=== PATIENT | male | born 1960 | race Caucasian/White ===

== ENCOUNTER 2016-04-19 11:10 | Inpatient (IN) | payer MEDICARE ==
[2016-04-19] MEDS ORDERED: SODIUM CHLORIDE 0.9% 10 ML FLUSH FLUSH PRN (11:33)
[2016-04-19] MEDS ORDERED: ALBUTEROL 0.083% 3 ML NEB NEB ONE (11:33)
[2016-04-19] MEDS ORDERED: Albuterol/Ipratropium Neb 3 ML NEB NEB ONE ×2 (11:33→13:35)
[2016-04-19] MEDS ORDERED: ASPIRIN (CHEWABLE) 81 MG TAB PO ONE (11:33)
[2016-04-19] MEDS ORDERED: METHYLPREDNISOLONE 125 MG/2 ML VIAL IV ONE (11:33)
--- NOTE | 2016-04-19 11:36 | EDPRACDOC ---
- General Information Information Source: Patient Mode Of Arrival: Car - History of Present Illness Onset: 1 week HPI: Pt c/o R chest pain with SOB, wheezing, productive cough, congestion, fever 101 , nausea x 1 week. Denies earache, sore throat, abd pain, changes in bowel or bladder, rash. Hx COPD. Denies recent antibiotics or steroids. Shortness of Breath: Moderate Relevant History: Reports: COPD Cough: Reports: Productive Rhinorrhea: Reports: Clear Ear Symptoms: Reports: None SOB Worsens with: Reports: Exertion, Coughing, Lying Flat SOB Improves with: Reports: Nothing Associated Signs and symptoms: Reports: Cough, Fever, Nasal Symptoms, Nausea <Nasrin Kaur - Last Filed: 04/19/16 12:48> <Nitesh Brewster - Last Filed: 04/19/16 12:54> - General Information Chief Complaint: Chest Pain Stated Complaint: CHEST PAIN/SHOB Time Seen by Provider: 04/19/16 11:28 Home Medications: Home Medications No Home Medications 04/19/16 Allergies/Adverse Reactions: Allergies Allergy/AdvReac Type Severity Reaction Status Date / Time methocarbamol [From Robaxin] Allergy Hives* Verified 04/19/16 11:21 ED Past Medical History - History Reviewed Yes Nurses notes reviewed and agree except as marked - Patient Medical History Cardiac History: Reports: Hypertension, Cardiac Catheterization (NEGATIVE-5 OR MORE YEARS) Respiratory History: Reports: COPD, Pneumonia, Emphysema. Denies: Asthma GI/ History: Reports: Gastroesophageal Reflux, Diverticulosis (episode of diverticulitis 2 weeks ago resolved) Musculoskeletal History: Reports: Osteoarthritis Psychological History: Reports: Anxiety. Denies: Depression, Substance Use Disorder Systemic History: Denies: Cancer Surgical History: Reports: Cholecystectomy, Cardiac Catheterization (NEGATIVE-5 OR MORE YEARS), Hernia Surgery - Family Medical History Reports: Diabetes, Cardiac Disorders (MOTHER). Denies: Hypertension, Cancer, Stroke - Social Medical History Smoking Status: Former smoker (quit 1 yr ago) Social History: Denies: Substance Use Disorder ETOH: None Substance Abuse: None <Nasrin Kaur - Last Filed: 04/19/16 12:48> EDM Review of Systems - Review of Systems Constitutional: Fever Ears: No Symptoms Reported. negative: Pain, Hearing Loss, Drainage, Ear Pulling Throat: No Symptoms Reported. negative: Pain, Swelling Nose: Congestion Mouth: No Symptoms Reported. negative: Pain, Drooling Respiratory: Cough, Shortness of Breath Cardiovascular: Chest Pain Gastrointestinal: Nausea Genitourinary: No Symptoms Reported. negative: Dysuria, Hematuria, Frequency, Discharge, Bleeding, Testicular Pain, Neurological: No Symptoms Reported. negative: Headache, Dizziness, Seizure, Numbness, Weakness, Speech Difficulty, Gait Difficulty Musculoskeletal: No Symptoms Reported. negative: Neck, Chestwall, Ribs, Back, Shoulder, Arm, Elbow, Forearm, Wrist, Hand, Pelvis, Hip, Femur, Knee, Leg, Ankle , Foot Integumentary: No Symptoms Reported. negative: Itching, Rash, Bruising, Wound Allergic/Immunologic: No Symptoms Reported. negative: Hives, Itching Hematologic: No Symptoms Reported. negative: Lymphadenopathy, Easy Bruising, Easy Bleeding Psychiatric: No Symptoms Reported. negative: Anxiety, Depression, Hallucinations, Insomnia, Suicidal <Nasrin Kaur - Last Filed: 04/19/16 12:48> - Physical Exam Constitutional: Alert, Distress (mild) Oriented to: Time, Person, Place Last recorded Vital Signs: Last Vital Signs Temp 98.5 F 04/19/16 11:18 Pulse 89 04/19/16 11:18 Resp 24 04/19/16 11:18 BP 168/98 04/19/16 11:18 Pulse Ox 92 04/19/16 11:18 Oxygen Pulse Oxygen Saturation 92 O2 Device Room Air Oxygen Flow Rate Fraction of Inspired Oxygen ( FIO2) - HEENT Head: Normal ( normocephalic) Eye Exam: Normal (PERRL, EOMI, Sclera white) Oropharynx: Normal (Pharynx:Moist without exudate,Gums-no swelling) Tympanic Membrane: Normal ENT EAC: Normal Nose: No Symptoms Reported (septum midline) Neck: Normal (FROM, trachea at midline) - Respiratory/Cardiovascular Respiratory: Wheezes Cardiovascular: Normal (RRR without murmur, gallop or rub) - GI Auscultation: Normal (NABS) Palpation: Normal (Soft,No rebound or guarding, non distended) Tenderness: Non tender - Musculoskeletal Back: Normal (Non-Tender) Extremities: Normal (Normal tone, Pulses 2+ No cyanosis or edema, FROM) - Integumentary Skin: Normal, Warm, Dry Lymphatics: Normal (no adenopathy) - Neurologic Memory Impaired: Normal Motor Function: Normal (Normal tone, Pulses 2+ No cyanosis or edema, FROM) Mood Description: Normal Perception: Normal <Nasrin Kaur - Last Filed: 04/19/16 12:48> - Physical Exam Last recorded Vital Signs: Last Vital Signs Temp 98.5 F 04/19/16 11:18 Pulse 83 04/19/16 11:50 Resp 24 04/19/16 11:50 BP 140/86 04/19/16 11:50 Pulse Ox 89 L 04/19/16 11:50 Oxygen Pulse Oxygen Saturation 89 O2 Device Room Air Oxygen Flow Rate Fraction of Inspired Oxygen ( 89 FIO2) <Nitesh Brewster - Last Filed: 04/19/16 12:54> ED SOB MDM - Differential Diagnosis Differential Diagnosis: Heart Failure, Pnuemonia, Respiratory Insufficiency, URI , Other (COPD exacerbation) - Results Result Diagrams: 04/19/16 11:45 04/19/16 11:45 - EKG EKG #1 EKG Time: 11:14 Rate: bpm: 92 [place]: Normal Rhythm: NSR Block: None ST: Nonsp (III) Comparison: 03/24/16 - Diagnostic Imaging Chest Image interpreted by: Radiologist Diagnostic Imaging Comments: IMPRESSION: Hazy right middle lobe airspace disease concerning for atelectasis versus pneumonia. <Nasrin Kaur - Last Filed: 04/19/16 12:48> - Results Result Diagrams: 04/19/16 11:45 04/19/16 11:45 Results: WBC 9.3 xk/uL (3.8-10.8) 04/19/16 11:45 RBC 5.50 xM/uL (4.70-6.10) 04/19/16 11:45 Hgb 15.2 g/dL (14.0-18.0) 04/19/16 11:45 Hct 46.2 % (42-52) 04/19/16 11:45 MCV 84 fL (80-94) 04/19/16 11:45 MCH 27.7 pg (27-32) 04/19/16 11:45 MCHC 33.0 g/dl (33-36) 04/19/16 11:45 RDW 16.3 % (11.5-14.5) H 04/19/16 11:45 Plt Count 183 xk/uL (130-400) 04/19/16 11:45 MPV 8.9 fL (7.4-10.4) 04/19/16 11:45 Neut % (Auto) 66.7 % (45-76) 04/19/16 11:45 Lymph % (Auto) 18.0 % (17-44) 04/19/16 11:45 [place] % (Auto) 5.3 % (3-10) 04/19/16 11:45 Eos % (Auto) 9.1 % (0-5) H 04/19/16 11:45 Baso % (Auto) 0.9 % (0-2) 04/19/16 11:45 Absolute Neuts (auto) 6.14 xk/uL (1.7-8.2) 04/19/16 11:45 Absolute Lymphs (auto) 1.67 xk/uL (0.65-4.75) 04/19/16 11:45 PT 10.0 SEC (9.2-11.2) 04/19/16 11:45 INR 1.0 04/19/16 11:45 APTT 25.9 SEC (22-35) 04/19/16 11:45 Puncture Site Right radial 04/19/16 11:45 pH 7.420 pH UNITS (7.35-7.45) 04/19/16 11:45 pCO2 43.0 mmHg (35-45) 04/19/16 11:45 pO2 59.0 mmHg (80-100) L 04/19/16 11:45 HCO3 27.9 MMOL/L (22-26) H 04/19/16 11:45 Total CO2 29.2 MMOL/L (23-27) H 04/19/16 11:45 Base Excess 2.9 (+/- 2) H 04/19/16 11:45 FiO2 % 0.21 04/19/16 11:45 Specimen Drawn By Rochelle 04/19/16 11:45 Sodium 142 mEq/L (137-146) 04/19/16 11:45 Potassium 3.8 mEq/L (3.5-5.1) 04/19/16 11:45 Chloride 103 mEq/L (98-107) 04/19/16 11:45 Carbon Dioxide 26 mMOL/L (22-33) 04/19/16 11:45 Anion Gap 17 mEq/L (8-16) H 04/19/16 11:45 BUN 13 MG/DL (9-20) 04/19/16 11:45 Creatinine 0.70 MG/DL (0.66-1.25) 04/19/16 11:45 Estimated GFR (MDRD) > 60 mL/min (>=60) 04/19/16 11:45 Glucose 131 MG/DL (70-99) H 04/19/16 11:45 Calculated Osmolality 275 MOs/Kg (270-290) 04/19/16 11:45 Calcium 9.5 MG/DL (8.4-10.2) 04/19/16 11:45 Total Bilirubin 0.4 MG/DL (0.2-1.3) 04/19/16 11:45 AST 31 IU/L (17-59) 04/19/16 11:45 ALT 40 IU/L (21-72) 04/19/16 11:45 Alkaline Phosphatase 79 IU/L (38-126) 04/19/16 11:45 Troponin I < 0.01 ng/mL (<.04) 04/19/16 11:45 Fzi-H-Ntiintlaalc Pept 24 pg/mL (0-900) 04/19/16 11:45 Total Protein 7.5 G/DL (6.3-8.2) 04/19/16 11:45 Albumin 4.3 G/DL (3.5-5.0) 04/19/16 11:45 Lab Results 04/19/16 04/19/16 04/19/16 11:45 11:45 11:45 WBC 9.3 RBC 5.50 Hgb 15.2 Hct 46.2 MCV 84 MCH 27.7 MCHC 33.0 RDW 16.3 H Plt Count 183 MPV 8.9 Neut % (Auto) 66.7 Lymph % (Auto) 18.0 [place] % (Auto) 5.3 Eos % (Auto) 9.1 H Baso % (Auto) 0.9 Absolute Neuts (auto) 6.14 Absolute Lymphs (auto) 1.67 PT 10.0 INR 1.0 APTT 25.9 Puncture Site Right radial pH 7.420 pCO2 43.0 pO2 59.0 L HCO3 27.9 H Total CO2 29.2 H Base Excess 2.9 H FiO2 % 0.21 Specimen Drawn By Belja Sodium Potassium Chloride Carbon Dioxide Anion Gap BUN Creatinine Estimated GFR (MDRD) Glucose Calculated Osmolality Calcium Total Bilirubin AST ALT Alkaline Phosphatase Troponin I Gzj-J-Bqpvsrvyltn Pept Total Protein Albumin 04/19/16 11:45 WBC RBC Hgb Hct MCV MCH MCHC RDW Plt Count MPV Neut % (Auto) Lymph % (Auto) [place] % (Auto) Eos % (Auto) Baso % (Auto) Absolute Neuts (auto) Absolute Lymphs (auto) PT INR APTT Puncture Site pH pCO2 pO2 HCO3 Total CO2 Base Excess FiO2 % Specimen Drawn By Sodium 142 Potassium 3.8 Chloride 103 Carbon Dioxide 26 Anion Gap 17 H BUN 13 Creatinine 0.70 Estimated GFR (MDRD) > 60 Glucose 131 H Calculated Osmolality 275 Calcium 9.5 Total Bilirubin 0.4 AST 31 ALT 40 Alkaline Phosphatase 79 Troponin I < 0.01 Zqi-Z-Yncmrcvdtgz Pept 24 Total Protein 7.5 Albumin 4.3 <Nitesh Brewster - Last Filed: 04/19/16 12:54> - Departure Disposition: Admit IP To This Hospital Education/Counseling Given To: Patient Education/Counseling Given Regarding: Diagnosis, Treatment <Nasrin Kaur - Last Filed: 04/19/16 12:48> - Departure Yes I personally saw and evaluated the patient. Decision to Admit Time: 12:52 Decision to admit date: 04/19/16 Decision to admit: from ED - Physician Consulted Hospitalist Time Called: 12:52 Provider Called: Scott Johansen Time [employer] Returned Call: 12:53 <Nitesh Brewster - Last Filed: 04/19/16 12:54> - Departure Condition: Stable Final Diagnosis: Hypoxia Right middle lobe pneumonia Qualifiers: Pneumonia type: due to unspecified organism Qualified Code(s): J18.1 - Lobar pneumonia, unspecified organism Instructions: Chest Pain (ED) Referrals: None,No Provider [NonStaff] - One Week
[2016-04-19 11:52] LABS: ALLEN'S TEST PASS; BEb 2.9 (+/- 2); TCO2 29.2 MMOL/L (23-27)
[2016-04-19 11:53] LABS: ABG Draw Site Right Radial
[2016-04-19 12:00] LABS: AUTOMATED BASOPHIL 0.9 % (0-2); AUTOMATED EOSINOPHIL 9.1 % (0-5); AUTOMATED MONOCYTE 5.3 % (3-10); AUTOMATED NEUTROPHIL 66.7 % (45-76); MPV 8.9 fL (7.4-10.4)
[2016-04-19 12:11] LABS: BLOOD UREA NITROGEN 13 MG/DL (9-20); CALCIUM 9.5 MG/DL (8.4-10.2); CALCULATED OSMOLALITY 275 MOs/Kg (270-290); CHLORIDE 103 mEq/L (98-107); GLUCOSE 131 MG/DL (70-99); SODIUM LEVEL 142 mEq/L (137-146); TOTAL PROTEIN 7.5 G/DL (6.3-8.2)
[2016-04-19 12:15] LABS: PARTIAL THROMB. TIME 25.9 SEC (22-35)
[2016-04-19] MEDS ORDERED: MORPHINE 4 MG/ML INJECTION IV ONE (12:44)
--- NOTE | 2016-04-19 12:46 | DIRPT ---
CLINICAL DATA: Shortness of breath, wheezing, productive cough EXAM: PORTABLE CHEST 1 VIEW COMPARISON: 02/23/2016 FINDINGS: There is a PE right middle lobe airspace disease. There is no pleural effusion or pneumothorax. The heart and mediastinal contours are unremarkable. The osseous structures are unremarkable. IMPRESSION: Hazy right middle lobe airspace disease concerning for atelectasis versus pneumonia. Electronically Signed By: Lou Woodard On: 04/19/2016 12:44
[2016-04-19] MEDS ORDERED: CEFTRIAXONE 1 GM in D5W 100 ML IV ONE (12:53)
[2016-04-19] MEDS ORDERED: AZITHROMYCIN 250 MG TAB PO ONE (12:53)
[2016-04-19] MEDS ORDERED: PROMETHAZINE 25 MG/ML VIAL IV PRN (13:06)
[2016-04-19] MEDS ORDERED: SENNA CONCENTRATE TAB PO PRN (13:06)
[2016-04-19] MEDS ORDERED: BISACODYL 10 MG SUPP PR PRN (13:06)
[2016-04-19] MEDS ORDERED: ACETAMINOPHEN 325 MG SUPP PR PRN (13:06)
[2016-04-19] MEDS ORDERED: ACETAMINOPHEN 325 MG/TAB TABLET PO PRN (13:06)
[2016-04-19] MEDS ORDERED: GLUCOSE (ORAL GEL) 15 GM TUBE PO PRN (13:08)
[2016-04-19] MEDS ORDERED: DEXTROSE 25 GM/50 ML PFS IV PRN (13:08)
[2016-04-19] MEDS ORDERED: GLUCAGON 1 MG VIAL SQ PRN (13:08)
--- NOTE | 2016-04-19 13:15 | HISTPHYS ---
- Chief Complaint Right-sided chest pain sharp worse with cough and deep breath with shortness of breath and getting worse over the past 5-6 days - History of Present Illness Patient very pleasant 56-year-old disabled, from COPD, white male who came in the emergency room today complaining of recent fever 101 F nausea dry cough over the past 5-6 days and feeling like his oxygen levels low (with right facial pain) with significantly worsening shortness breath over that period time more noticeable today than previously. He states he quit smoking cigarettes a year ago and does not drink any alcoholic beverages. - Medical History Cardiac History: Reports: Hypertension, Cardiac Catheterization (NEGATIVE-5 OR MORE YEARS) Respiratory History: Reports: COPD, Pneumonia, Emphysema. Denies: Asthma GI/ History: Reports: Gastroesophageal Reflux, Diverticulosis (episode of diverticulitis 2 weeks ago resolved) Musculoskeletal History: Reports: Osteoarthritis Systemic History: Denies: Cancer Psychological History: Reports: Anxiety. Denies: Depression, Substance Use Disorder - Surgical History Reports: Cholecystectomy, Cardiac Catheterization (NEGATIVE-5 OR MORE YEARS), Hernia Surgery - Medictions/Allergies Allergies methocarbamol [From Robaxin] Allergy (Verified 04/19/16 11:21) Hives* Home Medications No Home Medications 04/19/16 - Family History Reports: Diabetes, Cancer (Brother has B-cell lymphoma), Cardiac Disorders ( MOTHER mother of an [place] at the age is 73). Denies: Hypertension, Stroke - Social History Travel Outside of [place] in the Last 3 Months?: No Lives: with Spouse Smoking Status: Former smoker (quit 1 yr ago) Social History: Denies: Alcohol Use, Substance Use Disorder - Review of Systems Constitutional: Chills, Fever, Fatigue, Weakness Eyes: No Symptoms Reported (No blurry vision, visual changes, eye pain, or eye redness.) Ears: No Symptoms Reported (No ear pain or discharge) Nose: No Symptoms Reported (No nasal discharge/congestion or bleeding) Mouth: No Symptoms Reported (No oropharyngeal lesions or erythema) Throat/Neck: No Symptoms Reported (No throat pain or swelling.No oropharyngeal lesions or erythema.) Respiratory: Cough, Sputum (Scant sputum initially but now none) Cardiovascular: Chest Pain (Right-sided pleuritic chest pain) Gastrointestinal: No Symptoms Reported (No abdominal pain, nausea, vomiting, diarrhea, constipation, or bloody stool.) Genitourinary: No Symptoms Reported (No dysuria or hematuria.) Neurological: No Symptoms Reported (No headache, dizziness, seizures, or focal weakness.) Musculoskeletal:: No Symptoms Reported Integumentary: No Symptoms Reported (no rashes or lesions) Allergic/Immunologic: No Symptoms Reported (no rashes or lesions) Hematologic: No Symptoms Reported (No chronic anemia, bleeding, or easy bruising.), Other (Lymphatics- no lymph node swelling or pain.) Endocrine: No Symptoms Reported (No thyroid issues, polyuria, or polydipsia.) Psychiatric: No Symptoms Reported (Fully oriented, with normal and appropriate affect.) - Physical Exam Vital Signs: Initial Vitals Temperature 98.5 F 04/19/16 11:18 Pulse Rate 89 04/19/16 11:18 Respiratory Rate 24 04/19/16 11:18 Blood Pressure 168/98 04/19/16 11:18 Pulse Oxygen Saturation 92 04/19/16 11:18 Constitutional: Alert (Awake, Fully oriented. Normal and appropriate affect.Well appearing. Well nourished.), No apparent distress Oriented to: Time, Person, Place - HEENT Head: Normal (normocephalic, atraumatic.), Other (No cervical lymphadenopathy. No supraclavicular lymphadenopathy. Neck: No palpable mass, supple , trachea midline.) Eye: Normal (pupils equal, reactive to light, and round; EOMI, Sclera white) Oropharynx: Normal (Pharynx: Moist without exudate,Gums-no swelling, No oropharyngeal lesions or erythema, Mucous membranes are dry.) ENT EAC: Normal (No oropharyngeal lesions or erythema. Mucous membranes are dry. ) TMJ: Normal Nose: No Symptoms Reported (septum midline, Nares patent, without discharge or bleeding.) Respiratory: Diminished, Rhonchi, Tachypnea, Wheezes Cardiovascular: Normal (RRR , Normal S1, S2. No murmurs, rubs, or gallops. PMI non-displaced. Carotids: no carotid bruits. No bradycardia or tachycardia. DP pulses 2+ bilaterally.) - GI Auscultation: Normal (normal active sounds) Palpation: Normal (Soft,non distended,nontender. No hepatosplenomegaly.) Tenderness: Non tender (No rebound or guarding) Simeon's Sign: Negative - Exam Deferred: Yes - Musculoskeletal Back: Normal (Non-Tender) Extremities: Normal (Normal tone, DP pulses 2+ bilaterally, No cyanosis or edema bilaterally, FROM bilaterally.) Spine: non-tender, normal alignment, normal inspection, limited range of motion - Integumentary Skin: Normal (Clean, dry, and intact. No rashes. No lesions.) Lymphatics: Normal (No cervical lymphadenopathy. No supraclavicular lymphadenopathy.) - Neurologic Memory Impaired: Normal Motor Function: Normal (Motor 5/5 throughout.Normal tone, Pulses 2+ No cyanosis or edema, FROM) Cranial Nerve: Normal (CN II-XII intact sensation, strength 5/5) Cerebellar: Normal (Babinski: toes downgoing bilaterally. Intact Finger to nose. Sensory grossly intact to light touch. Intact rapid alternating movements bilaterally. No pronator drift.) Mood Description: Normal (Fully oriented. Normal and appropriate affect.) Thought: Coherent Perception: Normal (Normal and appropriate affect.) - Focused CV Perfusion Exam Vital Signs: Last Vital Signs Temp 98.5 F 04/19/16 11:18 Pulse 83 04/19/16 11:50 Resp 24 04/19/16 11:50 BP 140/86 04/19/16 11:50 Pulse Ox 89 L 04/19/16 11:50 - Lab Results 04/19/16 11:45 04/19/16 11:45 Laboratory Results - last 24 hr 04/19/16 04/19/16 04/19/16 11:45 11:45 11:45 WBC 9.3 RBC 5.50 Hgb 15.2 Hct 46.2 MCV 84 MCH 27.7 MCHC 33.0 RDW 16.3 H Plt Count 183 MPV 8.9 Neut % (Auto) 66.7 Lymph % (Auto) 18.0 [place] % (Auto) 5.3 Eos % (Auto) 9.1 H Baso % (Auto) 0.9 Absolute Neuts (auto) 6.14 Absolute Lymphs (auto) 1.67 PT 10.0 INR 1.0 APTT 25.9 Puncture Site pH pCO2 pO2 HCO3 Total CO2 Base Excess FiO2 % Specimen Drawn By Sodium 142 Potassium 3.8 Chloride 103 Carbon Dioxide 26 Anion Gap 17 H BUN 13 Creatinine 0.70 Estimated GFR (MDRD) > 60 Glucose 131 H Hemoglobin A1c Calculated Osmolality 275 Calcium 9.5 Total Bilirubin 0.4 AST 31 ALT 40 Alkaline Phosphatase 79 Troponin I < 0.01 App-V-Zymyerskrdi Pept 24 Total Protein 7.5 Albumin 4.3 TSH 04/19/16 04/19/16 04/19/16 11:45 11:45 11:45 WBC RBC Hgb Hct MCV MCH MCHC RDW Plt Count MPV Neut % (Auto) Lymph % (Auto) [place] % (Auto) Eos % (Auto) Baso % (Auto) Absolute Neuts (auto) Absolute Lymphs (auto) PT INR APTT Puncture Site Right radial pH 7.420 pCO2 43.0 pO2 59.0 L HCO3 27.9 H Total CO2 29.2 H Base Excess 2.9 H FiO2 % 0.21 Specimen Drawn By Belja Sodium Potassium Chloride Carbon Dioxide Anion Gap BUN Creatinine Estimated GFR (MDRD) Glucose Hemoglobin A1c 5.9 H Calculated Osmolality Calcium Total Bilirubin AST ALT Alkaline Phosphatase Troponin I Euv-M-Ubbdocnfmkq Pept Total Protein Albumin TSH 2.02 04/19/16 04/19/16 14:30 17:40 WBC RBC Hgb Hct MCV MCH MCHC RDW Plt Count MPV Neut % (Auto) Lymph % (Auto) [place] % (Auto) Eos % (Auto) Baso % (Auto) Absolute Neuts (auto) Absolute Lymphs (auto) PT INR APTT Puncture Site pH pCO2 pO2 HCO3 Total CO2 Base Excess FiO2 % Specimen Drawn By Sodium Potassium Chloride Carbon Dioxide Anion Gap BUN Creatinine Estimated GFR (MDRD) Glucose Hemoglobin A1c Calculated Osmolality Calcium Total Bilirubin AST ALT Alkaline Phosphatase Troponin I < 0.01 < 0.01 Qrg-W-Ichycawncxc Pept Total Protein Albumin TSH - Diagnostic Findings Chest x-ray shows right middle lobe infiltrate - Assessment (1) Right middle lobe pneumonia J18.1 - LOBAR PNEUMONIA, UNSPECIFIED ORGANISM Acute Present on Admission: Yes Qualifiers: Pneumonia type: due to unspecified organism Aspiration pneumonia type: A Qualified Code(s): J18.1 - Lobar pneumonia, unspecified organism Right middle lobe pneumonia and will cover with Rocephin Zithromax and probiotic. (2) Pleuritis R09.1 - PLEURISY Acute Present on Admission: Yes NSAIDs will be offered for his pleuritic chest pain (3) Acute exacerbation of chronic obstructive airways disease J44.1 - CHRONIC OBSTRUCTIVE PULMONARY DISEASE W (ACUTE) EXACERBATION Acute Pt getting IV Rocephin Zithromax solumedrol and probiotic. (4) Hyperglycemia R73.9 - HYPERGLYCEMIA, UNSPECIFIED Acute Present on Admission: Yes Glycohemoglobin 5.9. (5) Acute respiratory failure with hypoxemia J96.01 - ACUTE RESPIRATORY FAILURE WITH HYPOXIA Acute Present on Admission: Yes DuoNebs, supplemental O2, monitor O2 sats, maintain O2 sat above 90 but less than 94% due to COPD. Case Care Discussed with: Patient, Nursing Staff, Resource Management Total Time: 58 minutes Critical Care: No Code: 77438
[2016-04-19] MEDS: Albuterol/Ipratropium Neb 3 ML NEB NEB SCH ×2 (13:51→19:30)
[2016-04-19] MEDS ORDERED: NICOTINE 21 MG PATCH TOP SCH (14:00)
[2016-04-19] MEDS: OXYCODONE HCL 5 MG TABLET PO PRN ×3 (15:25→23:31)
[2016-04-19] MEDS: BuPROPion 150 MG SR TAB PO SCH (15:28)
[2016-04-19] MEDS: BENZONATATE 100 MG PERLES PO SCH ×2 (15:28→21:38)
[2016-04-19] MEDS: NS/KCl 20 mEq 1,000 ML IV SCH (16:41)
[2016-04-19] MEDS: ENOXAPARIN 60 MG/0.6 ML PFS SQ SCH (17:43)
[2016-04-19] MEDS: REGULAR INSULIN 100 UNITS/ML - 3 ML VIAL SQ SCH (17:43)
[2016-04-19 17:52] VITALS: BMI 33.7
[2016-04-19] MEDS ORDERED: NICOTINE 21 MG PATCH TOP PRN (19:15)
[2016-04-19] MEDS ORDERED: PANTOPRAZOLE 40 MG TAB PO ONE (19:16)
[2016-04-19] MEDS: METHYLPREDNISOLONE 125 MG/2 ML VIAL IV SCH (20:57)
[2016-04-19] MEDS: PROBIOTIC BLEND TAB PO SCH (20:57)
[2016-04-19] MEDS: TUSSIONEX 5 ML ORAL SYRINGE PO SCH (21:38)
[2016-04-19] MEDS: ALBUTEROL 0.083% 3 ML NEB NEB PRN (23:06)
[2016-04-19] MEDS: TEMAZEPAM 15 MG CAP PO PRN (23:31)
[2016-04-20] MEDS: Albuterol/Ipratropium Neb 3 ML NEB NEB SCH ×4 (01:22→20:53)
[2016-04-20] MEDS: METHYLPREDNISOLONE 125 MG/2 ML VIAL IV SCH ×3 (04:53→19:19)
[2016-04-20 05:05] LABS: ALLEN'S TEST PASS; BEb -3.1 (+/- 2); TCO2 24.6 MMOL/L (23-27)
[2016-04-20] MEDS: OXYCODONE HCL 5 MG TABLET PO PRN ×4 (05:12→17:22)
[2016-04-20] MEDS: BENZONATATE 100 MG PERLES PO SCH ×3 (05:13→22:49)
[2016-04-20] MEDS: CEFTRIAXONE 1 GM in D5W 100 ML IV SCH (05:14)
[2016-04-20] MEDS: PANTOPRAZOLE 40 MG TAB PO SCH (05:14)
[2016-04-20 05:24] LABS: ABG Draw Site Right Radial
[2016-04-20] MEDS: REGULAR INSULIN 100 UNITS/ML - 3 ML VIAL SQ SCH ×2 (05:33→17:04)
[2016-04-20] MEDS: ALBUTEROL 0.083% 3 ML NEB NEB PRN ×2 (05:50→18:13)
[2016-04-20 06:04] LABS: LEUKOCYTES/URINE NEG (NEGATIVE); NITRITE/URINE NEG (NEGATIVE); RBC/URINE 0-2 (0-2); URINE OCCULT BLOOD NEG (NEG/TRACE); WBC/URINE 0-2 (0-2)
[2016-04-20 07:45] LABS: MPV 8.9 fL (7.4-10.4)
[2016-04-20 07:55] LABS: BLOOD UREA NITROGEN 15 MG/DL (9-20); CALCIUM 9.3 MG/DL (8.4-10.2); CALCULATED OSMOLALITY 276 MOs/Kg (270-290); CHLORIDE 103 mEq/L (98-107); GLUCOSE 168 MG/DL (70-99); SODIUM LEVEL 141 mEq/L (137-146)
[2016-04-20] MEDS: Celecoxib 200 MG CAP PO SCH ×2 (08:07→17:23)
[2016-04-20] MEDS: AZITHROMYCIN 500 MG in D5W 250 ML IV SCH (08:10)
[2016-04-20] MEDS: TUSSIONEX 5 ML ORAL SYRINGE PO SCH ×2 (08:12→19:19)
[2016-04-20 08:30] LABS: SEG NEUTROPHIL 91 % (45-76)
[2016-04-20] MEDS: BuPROPion 150 MG SR TAB PO SCH (08:53)
[2016-04-20] MEDS: NS/KCl 20 mEq 1,000 ML IV SCH ×2 (10:07→11:13)
[2016-04-20] MEDS: PROBIOTIC BLEND TAB PO SCH ×2 (11:12→17:23)
[2016-04-20] MEDS ORDERED: CEFTRIAXONE 1 GM in D5W 100 ML IV SCH (12:00)
[2016-04-20] MEDS ORDERED: Vaccine Screening Complete SCH (13:00)
[2016-04-20] MEDS: ENOXAPARIN 60 MG/0.6 ML PFS SQ SCH (17:23)
[2016-04-20] MEDS: TEMAZEPAM 15 MG CAP PO PRN (19:19)
--- NOTE | 2016-04-20 20:00 | GENMEDPROG ---
Chief Complaint: Feeling much better ambulating today less right parasternal chest discomfort. Notes Reviewed: Yes Events from last night noted and discussed with Clinical Staff Current Medication List: Reviewed DVT Prophylaxis: Yes - Physical Examination Vital Signs and I&O: Last Vital Signs Temp 98.0 F 04/20/16 14:03 Pulse 103 04/20/16 14:03 Resp 20 04/20/16 14:03 BP 174/88 04/20/16 14:03 Pulse Ox 97 04/20/16 14:03 Oxygen Pulse Oxygen Saturation 97 O2 Device Room Air Oxygen Flow Rate 1 Fraction of Inspired Oxygen ( FIO2) Intake & Output 04/17/16 04/18/16 04/19/16 04/20/16 23:59 23:59 23:59 23:59 Intake Total 995 3399 Output Total 700 1375 Balance 295 2023 Patient's weight 103.532 kg 107.643 kg General: Alert, Oriented x3, No acute distress, Well appearing, Well nourished HEENT: Normal (Normocephalic, atraumatic;EOMI.Sclera white, Nares patent, without discharge or bleeding. No oropharyngeal lesions or erythema. Mucous membranes are dry.) Neck: Non-tender, Full range of motion, Normal Trachea alignment, Normal inspection (No cervical lymphadenopathy. No supraclavicular lymphadenopathy.), No Masses palpable, Supple Lymphatics: Normal (No cervical lymphadenopathy. No supraclavicular lymphadenopathy.) Respiratory: Diminished, Rhonchi, Wheezes. negative: Rales Cardiovascular: Regular rate and rhythm (No bradycardia or tachycardia), Normal S1, No Gallops,Rubs/Murmurs, Normal S2, Good Pedal Pulses (DP pulses 2+ bilaterally) GI: Normal bowel sounds (normal active sounds), Soft (non-distended), Non tender , No hepatospenomegaly, No masses Extremities/Musculoskeletal: Normal pulses (DP pulses 2+ bilaterally) Skin: Warm,Dry and Intact, No rashes, No significant lesion Neurological: Strength at 5/5 X4 ext (Motor 5/5 throughout.), Normal tone, Cranial nerves 3-12 NL ( 2-12 grossly intact.) Psych/Mental Status: Appropriate, Normal Affect Lab/DI/Studies Reviewed: 04/20/16 07:15 04/20/16 07:15 Laboratory Results - last 24 hr 04/19/16 04/20/16 04/20/16 17:40 05:00 05:20 WBC RBC Hgb Hct MCV MCH MCHC RDW Plt Count MPV Neut % (Auto) Lymph % (Auto) [place] % (Auto) Eos % (Auto) Baso % (Auto) Absolute Neuts (auto) Absolute Lymphs (auto) Seg Neuts % (Manual) Band Neutrophils % Lymphocytes % (Manual) Monocytes % (Manual) Absolute Neutrophils Absolute Lymphocytes Toxic Granulation Platelet Estimate RBC Morphology Puncture Site Right radial pH 7.320 L pCO2 45.0 pO2 76.0 L HCO3 23.2 Total CO2 24.6 Base Excess -3.1 L FiO2 % 3l nc Specimen Drawn By Whitr Sodium Potassium Chloride Carbon Dioxide Anion Gap BUN Creatinine Estimated GFR (MDRD) Glucose POC Capillary Glucose Calculated Osmolality Calcium Urine Color Yellow Urine Clarity Clear Urine pH 5.0 Ur Specific [place] 1.020 Urine Protein Neg Urine Glucose (UA) 2+ Urine Ketones Neg Urine Occult Blood Neg Urine Nitrite Neg Urine Bilirubin Neg Urine Urobilinogen <2.0 Ur Leukocyte Esterase Neg Urine RBC 0-2 Urine WBC 0-2 Ur Epithelial Cells Occ Urine Bacteria Few Urine Mucus Mod H Ur Random Microalbumin 12.3 04/20/16 04/20/16 04/20/16 05:32 07:15 07:15 WBC 22.3 H RBC 5.36 Hgb 14.8 Hct 45.5 MCV 85 MCH 27.7 MCHC 32.6 L RDW 16.6 H Plt Count 199 MPV 8.9 Neut % (Auto) Cancelled Lymph % (Auto) Cancelled [place] % (Auto) Cancelled Eos % (Auto) Cancelled Baso % (Auto) Cancelled Absolute Neuts (auto) Cancelled Absolute Lymphs (auto) Cancelled Seg Neuts % (Manual) 91 H Band Neutrophils % 1 Lymphocytes % (Manual) 6 L Monocytes % (Manual) 2 Absolute Neutrophils 20.52 H Absolute Lymphocytes 1.34 Toxic Granulation 1+ Platelet Estimate Norm RBC Morphology Norm Puncture Site pH pCO2 pO2 HCO3 Total CO2 Base Excess FiO2 % Specimen Drawn By Sodium 141 Potassium 4.6 Chloride 103 Carbon Dioxide 25 Anion Gap 18 H BUN 15 Creatinine 0.70 Estimated GFR (MDRD) > 60 Glucose 168 H POC Capillary Glucose 148 H Calculated Osmolality 276 Calcium 9.3 Urine Color Urine Clarity Urine pH Ur Specific [place] Urine Protein Urine Glucose (UA) Urine Ketones Urine Occult Blood Urine Nitrite Urine Bilirubin Urine Urobilinogen Ur Leukocyte Esterase Urine RBC Urine WBC Ur Epithelial Cells Urine Bacteria Urine Mucus Ur Random Microalbumin 04/20/16 17:03 WBC RBC Hgb Hct MCV MCH MCHC RDW Plt Count MPV Neut % (Auto) Lymph % (Auto) [place] % (Auto) Eos % (Auto) Baso % (Auto) Absolute Neuts (auto) Absolute Lymphs (auto) Seg Neuts % (Manual) Band Neutrophils % Lymphocytes % (Manual) Monocytes % (Manual) Absolute Neutrophils Absolute Lymphocytes Toxic Granulation Platelet Estimate RBC Morphology Puncture Site pH pCO2 pO2 HCO3 Total CO2 Base Excess FiO2 % Specimen Drawn By Sodium Potassium Chloride Carbon Dioxide Anion Gap BUN Creatinine Estimated GFR (MDRD) Glucose POC Capillary Glucose 148 H Calculated Osmolality Calcium Urine Color Urine Clarity Urine pH Ur Specific [place] Urine Protein Urine Glucose (UA) Urine Ketones Urine Occult Blood Urine Nitrite Urine Bilirubin Urine Urobilinogen Ur Leukocyte Esterase Urine RBC Urine WBC Ur Epithelial Cells Urine Bacteria Urine Mucus Ur Random Microalbumin - Assessment (1) Right middle lobe pneumonia Acute J18.1 - LOBAR PNEUMONIA, UNSPECIFIED ORGANISM Qualifiers: Pneumonia type: due to unspecified organism Aspiration pneumonia type: A Qualified Code(s): J18.1 - Lobar pneumonia, unspecified organism Comment/Plan: Right middle lobe pneumonia and will cover with Rocephin Zithromax and probiotic. (2) Pleuritis Acute R09.1 - PLEURISY Comment/Plan: NSAIDs will be offered for his pleuritic chest pain (3) Acute exacerbation of chronic obstructive airways disease Acute J44.1 - CHRONIC OBSTRUCTIVE PULMONARY DISEASE W (ACUTE) EXACERBATION Comment/Plan: Pt getting IV Rocephin Zithromax solumedrol and probiotic. (4) Hyperglycemia Acute R73.9 - HYPERGLYCEMIA, UNSPECIFIED Comment/Plan: Glycohemoglobin 5.9. (5) Acute respiratory failure with hypoxemia Acute J96.01 - ACUTE RESPIRATORY FAILURE WITH HYPOXIA Comment/Plan: DuoNebs , supplemental O2, monitor O2 sats, maintain O2 sat above 90 but less than 94% due to COPD. Case Care Discussed with: Patient, Nursing Staff, Resource Management Education/Counseling Given To: Patient Education/Counseling Given Regarding: Diagnosis, Treatment Total Time: 37 minutes Critical Care: No Code: 70038 (12+)
[2016-04-21] MEDS: Albuterol/Ipratropium Neb 3 ML NEB NEB SCH ×2 (01:40→06:21)
[2016-04-21] MEDS: METHYLPREDNISOLONE 125 MG/2 ML VIAL IV SCH ×2 (04:16→11:00)
[2016-04-21] MEDS: OXYCODONE HCL 5 MG TABLET PO PRN ×3 (05:13→13:10)
[2016-04-21] MEDS: PANTOPRAZOLE 40 MG TAB PO SCH (05:14)
[2016-04-21] MEDS: BENZONATATE 100 MG PERLES PO SCH ×2 (05:14→13:07)
[2016-04-21] MEDS: CEFTRIAXONE 1 GM in D5W 100 ML IV SCH (05:14)
[2016-04-21] MEDS: NS/KCl 20 mEq 1,000 ML IV SCH ×2 (05:33→12:25)
[2016-04-21 06:22] VITALS: BP 144/85; PULSE 70; TEMP 98.5
[2016-04-21] MEDS: REGULAR INSULIN 100 UNITS/ML - 3 ML VIAL SQ SCH (06:30)
[2016-04-21 06:54] LABS: MPV 9.6 fL (7.4-10.4)
[2016-04-21 07:28] LABS: BLOOD UREA NITROGEN 19 MG/DL (9-20); CALCIUM 8.7 MG/DL (8.4-10.2); CALCULATED OSMOLALITY 275 MOs/Kg (270-290); CHLORIDE 104 mEq/L (98-107); GLUCOSE 137 MG/DL (70-99); SODIUM LEVEL 141 mEq/L (137-146)
[2016-04-21] MEDS: AZITHROMYCIN 500 MG in D5W 250 ML IV SCH (08:05)
[2016-04-21] MEDS: BuPROPion 150 MG SR TAB PO SCH (08:05)
[2016-04-21] MEDS: Celecoxib 200 MG CAP PO SCH (08:05)
[2016-04-21] MEDS: TUSSIONEX 5 ML ORAL SYRINGE PO SCH (08:07)
[2016-04-21 08:34] LABS: SEG NEUTROPHIL 93 % (45-76)
[2016-04-21] MEDS: PROBIOTIC BLEND TAB PO SCH (11:00)
[2016-04-21] MEDS: ALBUTEROL 0.083% 3 ML NEB NEB PRN (11:43)
--- NOTE | 2016-04-21 13:38 | PCM.DCS92 ---
- Final/Secondary Discharge Diagnosis (1) Right middle lobe pneumonia Acute J18.1 - LOBAR PNEUMONIA, UNSPECIFIED ORGANISM Present on Admission: Yes due to unspecified organism A J18.1 - Lobar pneumonia, unspecified organism Comment: Right middle lobe pneumonia and will cover with Rocephin Zithromax and probiotic. (2) Pleuritis Acute R09.1 - PLEURISY Present on Admission: Yes Comment: NSAIDs will be offered for his pleuritic chest pain (3) Acute exacerbation of chronic obstructive airways disease Acute J44.1 - CHRONIC OBSTRUCTIVE PULMONARY DISEASE W (ACUTE) EXACERBATION Comment: Pt getting IV Rocephin Zithromax solumedrol and probiotic. (4) Hyperglycemia Acute R73.9 - HYPERGLYCEMIA, UNSPECIFIED Present on Admission: Yes Comment: Glycohemoglobin 5.9. (5) Acute respiratory failure with hypoxemia Acute J96.01 - ACUTE RESPIRATORY FAILURE WITH HYPOXIA Present on Admission: Yes Comment: DuoNebs, supplemental O2, monitor O2 sats, maintain O2 sat above 90 but less than 94% due to COPD. Discharge Disposition: Home Discharge Condition: Stable Cognitive Discharge Status: Unimpaired Fuctional Discharge Status: Independent, Fall Risk, Inability to drive due to severe medical illness, Deconditioning Home Medications / New Prescriptions: New Celecoxib (anti-inflammatory) [Celebrex] 200 mg PO BIDWM #60 capsule Probiotic Blend [Ghada Q] 1 tab PO BIDLS #60 tablet Nicotine [Nicoderm] 21 mg TOP Q24H PRN #30 pat PRN Reason: Tremors Prednisone [Sterapred 10 mg/6 day pack] 1 tab PO DIR #1 pack Hydrocodone/Chlorphen Polis [Tussionex] 5 ml PO BID #20 udc BuPROPion (BID formulation) [Wellbutrin-Sr] 150 mg PO DAILY #30 tab.sr.12h Discharge Home Medication List BuPROPion (BID formulation) [Wellbutrin-Sr] 150 mg PO DAILY #30 tab.sr.12h 04/21 [Rx] Celecoxib (anti-inflammatory) [Celebrex] 200 mg PO BIDWM #60 capsule 04/21/16 [ Rx] Hydrocodone/Chlorphen Polis [Tussionex] 5 ml PO BID #20 udc 04/21/16 [Rx] Nicotine [Nicoderm] 21 mg TOP Q24H PRN #30 pat 01/26/17 [Rx] Prednisone [Sterapred 10 mg/6 day pack] 1 tab PO DIR #1 pack 04/21/16 [Rx] Probiotic Blend [Ghada Q] 1 tab PO BIDLS #60 tablet 04/21/16 [Rx] New Discharge Medications (Rx) BuPROPion (BID formulation) [Wellbutrin-Sr] 150 mg PO DAILY #30 tab.sr.12h 04/21 [Rx] Celecoxib (anti-inflammatory) [Celebrex] 200 mg PO BIDWM #60 capsule 04/21/16 [ Rx] Hydrocodone/Chlorphen Polis [Tussionex] 5 ml PO BID #20 udc 04/21/16 [Rx] Nicotine [Nicoderm] 21 mg TOP Q24H PRN #30 pat 04/21/16 [Rx] Prednisone [Sterapred 10 mg/6 day pack] 1 tab PO DIR #1 pack 04/21/16 [Rx] Probiotic Blend [Ghada Q] 1 tab PO BIDLS #60 tablet 04/21/16 [Rx] O2 Device: Room Air Additional Instructions: PLEASE SCHEDULE FOLLOW-UP APPOINTMENT WITH CORRESPONDENCE TRANSCRIBER MD. Diet at Discharge: As Tolerated, Regular Activity: No Restrictions, As Tolerated Call Office For: Worsening Symptoms, Fever over 100.5, Pain Uncontrolled By Meds - DC Summary Notes Hospital Course Note:: Discharge summary on patient named BRIEN OCAMPO admitted to [facility] on 04/19/16 by Scott Johansen MD. Date of discharge is []. UNFORTUNATE 56-YEAR-OLD GENTLEMAN WELL KNOWN TO ME FROM HIS ADMISSIONS ARE LATE LAST YEAR PRESENTED TO OUR HOSPITAL WITH PNEUMONIA. HE HAD SOME CHEST PAIN ASSOCIATED WITH IT. HE REQUIRED SOME OXYGEN. THROUGHOUT HIS HOSPITALIZATION HIS OXYGEN WAS DISCONTINUED HE NO LONGER REQUIRED IT. HE HAS SIGNIFICANTLY IMPROVED. HE WALKED IN THE HALLS TODAY WITH AN O2 SAT OF 92% ON ROOM AIR. AT THIS POINT PATIENT HAS REACHED MAXIMUM BENEFIT OF HOSPITALIZATION. HE IS STABLE FOR DISCHARGE HOME. Total Time: 45 MIN Code: 45288 (>30min.) - Physical Exam Vital Signs: Last Vital Signs Temp 98.5 F 04/21/16 05:30 Pulse 70 04/21/16 05:30 Resp 20 04/21/16 05:30 BP 144/85 04/21/16 05:30 Pulse Ox 98 04/21/16 08:35 Oxygen Pulse Oxygen Saturation 98 O2 Device Room Air Oxygen Flow Rate 1 Fraction of Inspired Oxygen ( FIO2) Constitutional: Alert (Awake, Fully oriented. Normal and appropriate affect.Well appearing. Well nourished.), No apparent distress Oriented to: Time, Person, Place - HEENT Head: Normal (normocephalic, atraumatic.), Other (No cervical lymphadenopathy. No supraclavicular lymphadenopathy. Neck: No palpable mass, supple , trachea midline.) Eye: Normal (pupils equal, reactive to light, and round; EOMI, Sclera white) Oropharynx: Normal (Pharynx: Moist without exudate,Gums-no swelling, No oropharyngeal lesions or erythema, Mucous membranes are dry.) ENT EAC: Normal (No oropharyngeal lesions or erythema. Mucous membranes are dry. ) TMJ: Normal Nose: No Symptoms Reported (septum midline, Nares patent, without discharge or bleeding.) - Respiratory/Cardiovascular Respiratory: Diminished, Rhonchi. negative: Rales, Wheezes Cardiovascular: Normal (RRR , Normal S1, S2. No murmurs, rubs, or gallops. PMI non-displaced. Carotids: no carotid bruits. No bradycardia or tachycardia. DP pulses 2+ bilaterally.) - GI Auscultation: Normal (normal active sounds) Palpation: Normal (Soft,non distended,nontender. No hepatosplenomegaly.) Tenderness: Non tender (No rebound or guarding) Simeon's Sign: Negative - Musculoskeletal Back: Normal (Non-Tender) Extremities: Normal (Normal tone, DP pulses 2+ bilaterally, No cyanosis or edema bilaterally, FROM bilaterally.) - Integumentary Skin: Normal (Warm dry no rashes) Lymphatics: Normal (No cervical lymphadenopathy. No supraclavicular lymphadenopathy.) - Neurologic Memory Impaired: Normal Motor Function: Normal (Motor 5/5 throughout.Normal tone, Pulses 2+ No cyanosis or edema, FROM) Cranial Nerve: Normal (CN II-XII intact sensation, strength 5/5) Cerebellar: Normal (Babinski: toes downgoing bilaterally. Intact Finger to nose. Sensory grossly intact to light touch. Intact rapid alternating movements bilaterally. No pronator drift.) Mood Description: Normal (Fully oriented. Normal and appropriate affect.) Thought: Coherent Perception: Normal (Normal and appropriate affect.) - Other Exam Other Exam Findings: Laboratory Results - last 24 hr 04/19/16 04/20/16 04/21/16 17:40 17:03 06:00 WBC RBC Hgb Hct MCV MCH MCHC RDW Plt Count MPV Neut % (Auto) Lymph % (Auto) [place] % (Auto) Eos % (Auto) Baso % (Auto) Absolute Neuts (auto) Absolute Lymphs (auto) Seg Neuts % (Manual) Band Neutrophils % Lymphocytes % (Manual) Monocytes % (Manual) Absolute Neutrophils Absolute Lymphocytes Platelet Estimate RBC Morphology Sodium 141 Potassium 4.4 Chloride 104 Carbon Dioxide 26 Anion Gap 15 BUN 19 Creatinine 0.70 Estimated GFR (MDRD) > 60 Glucose 137 H POC Capillary Glucose 148 H Calculated Osmolality 275 Calcium 8.7 Ur Random Microalbumin 12.3 04/21/16 04/21/16 06:00 06:03 WBC 24.4 H RBC 5.00 Hgb 13.8 L Hct 42.5 MCV 85 MCH 27.6 MCHC 32.5 L RDW 16.5 H Plt Count 196 MPV 9.6 Neut % (Auto) Cancelled Lymph % (Auto) Cancelled [place] % (Auto) Cancelled Eos % (Auto) Cancelled Baso % (Auto) Cancelled Absolute Neuts (auto) Cancelled Absolute Lymphs (auto) Cancelled Seg Neuts % (Manual) 93 H Band Neutrophils % 0 Lymphocytes % (Manual) 6 L Monocytes % (Manual) 1 Absolute Neutrophils 22.69 H Absolute Lymphocytes 1.46 Platelet Estimate Norm RBC Morphology 1+ aniso Sodium Potassium Chloride Carbon Dioxide Anion Gap BUN Creatinine Estimated GFR (MDRD) Glucose POC Capillary Glucose 137 H Calculated Osmolality Calcium Ur Random Microalbumin
[2016-04-21] MEDS ORDERED: PREDNISONE 10 MG PO SCH ×3 (14:00→18:00)
[2016-04-22] MEDS ORDERED: PREDNISONE 10 MG PO SCH (07:30)
[2016-04-22] MEDS ORDERED: BuPROPion 150 MG SR TAB PO SCH (09:00)
[2016-04-23] MEDS ORDERED: PREDNISONE 10 MG PO SCH (07:30)
[2016-04-24] MEDS ORDERED: PREDNISONE 10 MG PO SCH (07:30)
[2016-04-25] MEDS ORDERED: PREDNISONE 10 MG PO SCH (07:30)
[2016-04-26] MEDS ORDERED: PREDNISONE 10 MG PO SCH (07:30)
== END 2016-04-21 16:13 | disposition home or self-care (01) | DRG 193 ==
LOC: ED 11:10 → EDINP 13:08 → TUOBSINP 15:05 → MPS3 15:45
PROVIDERS: ADMIT Internal Medicine; ATTEND Hospitalist
PROC: 039B3ZZ Drainage of Right Radial Artery, Percutaneous Approach (ICD-10-PCS; principal; 2016-04-19)
DX: J18.1 Lobar pneumonia, unspecified organism (principal); J96.01 Acute respiratory failure with hypoxia; J44.1 Chronic obstructive pulmonary disease with (acute) exacerbation; J44.0 Chronic obstructive pulmonary disease with (acute) lower respiratory infection; R73.9 Hyperglycemia, unspecified; I10 Essential (primary) hypertension; Z87.01 Personal history of pneumonia (recurrent); K21.9 Gastro-esophageal reflux disease without esophagitis; M19.90 Unspecified osteoarthritis, unspecified site; F41.9 Anxiety disorder, unspecified; Z88.8 Allergy status to other drugs, medicaments and biological substances; Z87.891 Personal history of nicotine dependence
CPT/HCPCS: 36415; 36600; 71010; 80048; 80053; 81001; 82043; 82803; 82962; 83036; 83880; 84443; 84484; 85007; 85025; 85027; 85610; 85730; 87040; 93005; 94640; 96365; 96372; 96375; 98960; 99285; G0237; J0456; J0696; J1650; J2270; J2930; J3490; J7040; J7060; J7070; J7620